=== PATIENT | female | born 1955 | race Caucasian/White ===

== ENCOUNTER → 2016-09-18 | Outpatient (CLI) | payer MEDICARE ==
[~2016-09-18] MED LIST: ACCURETIC 25 MG1 TAB PO; ASPI325T6 PO; BACTRIM DS 8001 TAB PO; CEPHALEXIN500 M1 PO; CYMBALTA 60MG60 MG PO; EXCEDRIN1 TAB PO; FERROUS SU325 MG/TAB PO; GLUCOPHAGE500 MG/TAB PO; HUMALOG PEN100 U/ML SQ; LEVEMIR100 U/ML SQ; LIPITOR 10MG10 MG PO; LOPRESSOR 225 MG/TAB PO; MEVACOR 20M20 MG/TAB PO; MITIGARE0.6 MG PO; MULTIVITAMIN1 CTB PO; NORCO 325 MG-51 TAB PO; NOVOLOG 100U100 U/M1 SC; PREMARIN .3MG0.3 MG PO; TYLENOL 325MG325 MG PO; TYLENOL 500MG500 MG PO; ZESTRIL 20MG TA20 MG PO
== END ==
LOC: WCC 10:41
DX: E11.621 Type 2 diabetes mellitus with foot ulcer (principal); L97.519 Non-pressure chronic ulcer of other part of right foot with unspecified severity; L97.529 Non-pressure chronic ulcer of other part of left foot with unspecified severity
CPT/HCPCS: A6197; A6207; A6212; G0463

== ENCOUNTER → 2016-09-25 | Outpatient (CLI) | payer MEDICARE | LOC: WCC 08:44 | DX: E11.621 Type 2 diabetes mellitus with foot ulcer (principal); L97.519 Non-pressure chronic ulcer of other part of right foot with unspecified severity; E66.01 Morbid (severe) obesity due to excess calories | CPT/HCPCS: 13919; 27510; 27517; A6197; A6207; G0463 ==

== ENCOUNTER → 2016-10-02 | Outpatient (CLI) | payer MEDICARE | LOC: WCC 09:34 | DX: E11.621 Type 2 diabetes mellitus with foot ulcer (principal); L97.519 Non-pressure chronic ulcer of other part of right foot with unspecified severity; E66.01 Morbid (severe) obesity due to excess calories | CPT/HCPCS: 13919; 13973; 27510; A6197; A6199 ==

== ENCOUNTER → 2016-10-26 | Outpatient (CLI) | payer MEDICARE | LOC: WCC 10-12 14:01 | DX: E11.621 Type 2 diabetes mellitus with foot ulcer (principal); E66.01 Morbid (severe) obesity due to excess calories | CPT/HCPCS: 13919; 13973; 27510; A6197; A6199; G0463 ==

== ENCOUNTER 2016-11-05 13:16 | Outpatient (RCR) | payer MEDICARE ==
[~2016-11-05] VITALS: Ht 172.7 cm; Wt 81.0 kg
[~2016-11-05 13:16] MED LIST changes: -ZESTRIL 20MG TA20 MG PO
[2016-11-05] MEDS ORDERED: ZESTRIL 20MG TA20 MG PO (13:27)
[2016-11-05 14:13] VITALS: BP 125/70; PULSE 67; TEMP 97.9
[2016-11-12 13:22] VITALS: BP 112/70; PULSE 80; TEMP 97.7
[2016-11-19 12:19] VITALS: BP 140/80; PULSE 71; TEMP 97.2
[2016-11-26 12:07] VITALS: BP 130/80; PULSE 67; TEMP 97.1
== END 2017-02-03 ==
LOC: WCC
DX: E11.621 Type 2 diabetes mellitus with foot ulcer (principal); L97.519 Non-pressure chronic ulcer of other part of right foot with unspecified severity

== ENCOUNTER → 2016-12-04 | Outpatient (CLI) | payer MEDICARE ==
[~2016-12-04] MED LIST changes: +ZESTRIL 20MG TA20 MG PO
== END ==
LOC: WCC 11-02 09:20
DX: E11.621 Type 2 diabetes mellitus with foot ulcer (principal); E66.01 Morbid (severe) obesity due to excess calories
CPT/HCPCS: 13919; 13973; 27510; A6197; A6199; G0463

== ENCOUNTER → 2016-12-10 | Outpatient (CLI) | payer MEDICARE | LOC: WCC 12:11 | DX: E11.621 Type 2 diabetes mellitus with foot ulcer (principal); E66.01 Morbid (severe) obesity due to excess calories | CPT/HCPCS: 13919; 13973; 17717; 27510; A6197; A6199; A6212; G0463 ==

== ENCOUNTER → 2016-12-17 | Outpatient (CLI) | payer MEDICARE | LOC: WCC 09:31 | DX: E11.621 Type 2 diabetes mellitus with foot ulcer (principal); L97.519 Non-pressure chronic ulcer of other part of right foot with unspecified severity; E66.9 Obesity, unspecified | CPT/HCPCS: 13919; 17717; 27510; 27517; A6197; A6207; A6212 ==

== ENCOUNTER → 2016-12-24 | Outpatient (CLI) | payer MEDICARE | LOC: WCC 10:01 | DX: E11.621 Type 2 diabetes mellitus with foot ulcer (principal); L97.519 Non-pressure chronic ulcer of other part of right foot with unspecified severity; E66.01 Morbid (severe) obesity due to excess calories | CPT/HCPCS: 13919; 27510; A6197; G0463 ==

== ENCOUNTER → 2016-12-31 | Outpatient (CLI) | payer MEDICARE | LOC: WCC 11:14 | DX: E11.621 Type 2 diabetes mellitus with foot ulcer (principal); L97.519 Non-pressure chronic ulcer of other part of right foot with unspecified severity | CPT/HCPCS: 13919; 13973; 17717; 27510; A6197; A6199; A6212; G0463 ==